=== PATIENT | female | born 1995 | race Caucasian/White ===

== ENCOUNTER 2023-04-02 23:34 | Emergency (ER) | payer OTHER ==
[2023-04-02 23:45] VITALS: BP 130/80; PULSE 76; RESP 18; TEMP 98; BMI 25.8
[2023-04-03] MEDS ORDERED: ACETAMINOPHEN 325 MG TABLET (FP) PO ONE (00:54)
[2023-04-03] MEDS ORDERED: ACETAMINOPHEN 325 MG TABLET (FP) ONE (00:55)
[2023-04-03 01:09] LABS: HCG,QUALITATIVE URINE Negative
[2023-04-03 01:10] LABS: EPI CELLS >36 /uL (0-25.1); HYALINE CASTS 1 /uL (0-3.1); PH,URINE 7.5 (5.0-8.0); URINE APPEARANCE TURBID; URINE BACTERIA 673 /uL (0-1359); URINE BILIRUBIN NEGATIVE (NEGATIVE); URINE COLOR YELLOW; URINE GLUCOSE (UA) NEGATIVE (NEGATIVE); URINE KETONE TRACE (NEGATIVE); URINE LEUK ESTERASE NEGATIVE (NEGATIVE); URINE NITRITE NEGATIVE (NEGATIVE); URINE PROTEIN NEGATIVE (NEGATIVE); URINE RBC 194 /uL (0-23.9); URINE WBC 10 /uL (0-25.8)
[2023-04-03] MEDS ORDERED: CEPHALEXIN MONOHYDRATE 500 MG CAPSULE (UD) PO ONE (01:13)
[2023-04-03] MEDS ORDERED: CEPHALEXIN MONOHYDRATE 500 MG CAPSULE (UD) ONE (01:17)
[2023-04-03 07:23] LABS: URINE CRYSTALS MODERTAE /hpf
== END 2023-04-03 01:41 | disposition home or self-care (01) ==
LOC: JER 23:34
DX: R07.9 Chest pain, unspecified (principal); R00.0 Tachycardia, unspecified; N39.0 Urinary tract infection, site not specified; R11.2 Nausea with vomiting, unspecified
CPT/HCPCS: 71046-TC-FY; 81003; 84703; 87086; 93005; 93010; 99285-25